=== PATIENT | female | born 1955 | race Caucasian/White ===

== ENCOUNTER 2017-03-29 10:30 | Outpatient (CLI) | payer OTHER | END 2017-03-29 17:09 | disposition home or self-care (01) | LOC: SMI 10:30 | PROVIDERS: ATTEND Obstetrics & Gynecology | DX: I63.9 Cerebral infarction, unspecified (principal); E11.10 Type 2 diabetes mellitus with ketoacidosis without coma | CPT/HCPCS: 70551 ==